=== PATIENT | female | born 2000 | race Two or more races ===

== ENCOUNTER 2022-03-04 11:49 | Emergency (ER) | payer SELFPAY ==
[~2022-03-04] VITALS: Ht 162.6 cm; Wt 77.3 kg
[2022-03-04 13:09] VITALS: BP 122/75
[2022-03-04] MEDS ORDERED: TRIA0.02 TOP (13:42)
== END 2022-03-04 14:01 | disposition home or self-care (01) ==
LOC: ER 11:49
DX: L20.9 Atopic dermatitis, unspecified (principal)